=== PATIENT | female | born 1935 | race Caucasian/White ===

== ENCOUNTER 2017-01-23 13:12 | Emergency (ER) | payer OTHER ==
[2017-01-23 13:38] VITALS: BMI 31.2
--- NOTE | 2017-01-23 14:48 | PDOC ---
History of Present Illness - General History Source: Patient Exam Limitations: No Limitations - History of Present Illness Initial Comments: 01/23/17 14:57 The patient is an 82-year-old woman, accompanied by her niece, with a significant past medical history of hypertension, hypercholesterolemia and rheumatoid arthritis who presents to the emergency department for further evaluation for generalized weakness for the past 3 days. As per patient's niece , the patient has been noted to be more weak than usual, as she has a loss of appetite with noted constant non-productive cough and pleuritic chest pain. She states that the patient is constantly coughing, wanting to clear her throat, and as a result she also gets short of breath. Patient had a temperature at home , reported to be 101, but was noted to be 98.1 upon ER arrival. Patient's niece expresses concern, as the patient had one episode of emesis last night. No chills, lightheadedness, dizziness, visual changes, neck pain, lower extremity pain, diarrhea. No urinary complaints. Allergies: No Known Drug Allergies. Past Surgical History: None reported. Social History: Never smoked. No ETOH and recreational drug use. <Verenice Minaya - Last Filed: 01/23/17 15:36> - General History Source: Patient, Family, Old Records Exam Limitations: No Limitations <Jada Ashford - Last Filed: 01/23/17 16:08> - General Chief Complaint: Shortness of Breath Stated Complaint: BODYACHES, COUGH Time Seen by Provider: 01/23/17 14:48 Past History <Verenice Minaya - Last Filed: 01/23/17 15:36> - Past Medical History Anemia: No Asthma: No Cancer: No Cardiac Disorders: No CVA: No COPD: No Dementia: No Diabetes: No GI Disorders: No Disorders: Yes (INCONTINENCE) HTN: Yes Hypercholesterolemia: Yes Liver Disease: No Seizures: No Thyroid Disease: No Other medical history: RHEUMATOID ARTHRITIS, EYE - Surgical History Abdominal Surgery: No (HERNIA) Appendectomy: No Cardiac Surgery: No Cholecystectomy: No Lung Surgery: No Neurologic Surgery: No Orthopedic Surgery: No - Immunization History Td Vaccination: Yes TDAP Vaccination: Yes Immunization Up to Date: Yes - Psycho/Social/Smoking Cessation Hx Anxiety: No Suicidal Ideation: No Smoking Status: No Smoking History: Never smoked Years of Tobacco Use: 0 Have you smoked in the past 12 months: No Number of Cigarettes Smoked Daily: 0 Cigars Per Day: 0 Information on smoking cessation initiated: No Hx Alcohol Use: No Drug/Substance Use Hx: No Substance Use Type: None Hx Substance Use Treatment: No <Jada Ashford - Last Filed: 01/23/17 16:08> - Past Medical History Allergies/Adverse Reactions: Allergies Allergy/AdvReac Type Severity Reaction Status Date / Time No Known Drug Allergies Allergy Verified 01/23/17 13:39 Home Medications: Ambulatory Orders Gabapentin [Neurontin] 100 mg PO BID 02/20/13 Metoprolol Tartrate [Lopressor -] 25 mg PO BID 02/20/13 Naproxen Sodium [Naprelan] 500 mg PO BID PRN 02/20/13 Simvastatin [Zocor -] 20 mg PO HS 02/20/13 Methotrexate [Mexate -] 7 tab PO MO 08/05/15 Pantoprazole Sodium [Protonix -] 40 mg PO HS #30 tablet.ec 08/06/15 Folic Acid 1 mg PO DAILY 01/23/17 Levofloxacin [Levaquin] 500 mg PO DAILY #7 tablet 01/23/17 Ranitidine [Zantac -] 150 mg PO HS 01/23/17 Review of Systems - Review of Systems Able to Perform ROS?: Yes Comments:: 01/23/17 14:57 GENERAL/CONSTITUTIONAL: Yes: Loss of Appetite. Generalized weakness. No fever or chills. HEAD, EYES, EARS, NOSE AND THROAT: No change in vision. No ear pain or discharge. No sore throat. CARDIOVASCULAR: Yes: Chest Pain. Shortness of breath. RESPIRATORY: No cough, wheezing, or hemoptysis. GASTROINTESTINAL: Yes: Emesis (on reported episode at night). No nausea, diarrhea or constipation. GENITOURINARY: No dysuria, frequency, or change in urination. MUSCULOSKELETAL: No joint or muscle swelling or pain. No neck or back pain. SKIN: No rash NEUROLOGIC: No headache, vertigo, loss of consciousness, or change in strength/ sensation. ENDOCRINE: No increased thirst. No abnormal weight change. HEMATOLOGIC/LYMPHATIC: No anemia, easy bleeding, or history of blood clots. ALLERGIC/IMMUNOLOGIC: No hives or skin allergy. <Verenice Minaya - Last Filed: 01/23/17 15:36> *Physical Exam - Vital Signs Last Vital Signs Temp Pulse Resp BP Pulse Ox 98.1 F 73 18 151/66 96 01/23/17 13:35 01/23/17 13:35 01/23/17 13:35 01/23/17 13:35 01/23/17 13:35 - Physical Exam Comments: 01/23/17 14:57 GENERAL: Awake, alert, and fully oriented, in no acute distress HEAD: No signs of trauma EYES: PERRLA, EOMI, sclera anicteric, conjunctiva clear ENT: Auricles normal inspection, hearing grossly normal, nares patent, oropharynx clear without exudates. Moist mucosa NECK: Normal ROM, supple, no lymphadenopathy, JVD, or masses LUNGS: Breath sounds equal, clear to auscultation bilaterally. No wheezes, and no crackles HEART: Regular rate and rhythm, normal S1 and S2, no murmurs, rubs or gallops ABDOMEN: Soft, there is mild left upper quadrant tenderness to palpation, normoactive bowel sounds. No guarding, no rebound. No masses EXTREMITIES: Normal range of motion, trace bipedal edema. No clubbing or cyanosis. No cords, erythema, or tenderness NEUROLOGICAL: Cranial nerves II through XII grossly intact. Normal speech <Verenice Minaya - Last Filed: 01/23/17 15:36> - Vital Signs Last Vital Signs Temp Pulse Resp BP Pulse Ox 98.1 F 73 18 151/66 96 01/23/17 13:35 01/23/17 13:35 01/23/17 13:35 01/23/17 13:35 01/23/17 13:35 <Jada Ashford - Last Filed: 01/23/17 16:08> ED Treatment Course - LABORATORY CBC & Chemistry Diagram: 01/23/17 15:10 01/23/17 15:10 - RADIOLOGY Radiograph Interpretation: 01/23/17 15:36 EXAM: RAD/CHEST X-RAY PORTABLE Reported by Dr. Richard Curtis IMPRESSION: No acute pathology. No change in adverse nature since 09/26/2006 <Verenice Minaya - Last Filed: 01/23/17 15:36> - LABORATORY CBC & Chemistry Diagram: 01/23/17 15:10 01/23/17 15:10 <Jada Ashford - Last Filed: 01/23/17 16:08> Medical Decision Making - Medical Decision Making 82-year-old female with history of hypertension, hypercholesterolemia, rheumatoid arthritis who presents to the emergency department with her niece who states that for the past 3 days the patient has had a cough, sweating at night and generalized weakness. Differential diagnosis includes but is not limited to: Pneumonia, influenza, CHF, ACS, dehydration, electrolyte abnormality , toxic/metabolic derangement. Plan: 1. EKG 2. Chest x-ray 3. Influenza PCR 4. Labs 5. Observe and reevaluate 01/23/17 16:07 Addendum: The labs were reviewed and are noted in the EMR. Urine analysis shows positive leukoesterase. Influenza PCR is negative as is the chest x-ray. The patient is feeling improved. She has been prescribed a 500 mg of Levaquin daily for the next 7 daysfirst dose given in the ED today. I've advised the patient to follow-up with her primary care physician within the next 3 days and return to the emergency department if her symptoms persist, worsen, or new symptoms arise. <Jada Ashford - Last Filed: 01/23/17 16:08> *DC/Admit/Observation/Transfer - Attestations Scribe Attestion: 01/23/17 14:57 Documentation prepared by Verenice Minaya, acting as medical insurance claims specialist for Jada Ashford MD. <Verenice Minaya - Last Filed: 01/23/17 15:36> - Discharge Dispostion Admit: No - Attestations Physician Attestion: 01/23/17 15:22 I, Dr. Jada Ashford, attest that the scribes documentation that appears above has been prepared under my direction and personally reviewed by me in its entirety. I confirmed that the note above accurately reflects all work, treatment, procedures, and medical decision-making performed by me. <Jada Ashford - Last Filed: 01/23/17 16:08> Diagnosis at time of Disposition: Weakness generalized, UTI (urinary tract infection) - Discharge Dispostion Disposition: HOME Condition at time of disposition: Stable - Prescriptions Prescriptions: Levofloxacin [Levaquin] 500 mg PO DAILY #7 tablet - Referrals Referrals: Horace Pride MD [Primary Care Provider] - - Patient Instructions Printed Discharge Instructions: DI for Urinary Tract Infection (UTI) Additional Instructions: You have a urinary tract infection. You have been prescribed Levaquin 500 mg take 1 tablet daily for the next 7 days. You have received her first dose in the emergency department today. Please follow-up with your primary care physician within the next 3 days and return to the emergency department if your symptoms persist, worsen, or new symptoms arise.
[2017-01-23 15:32] LABS: EOSINOPHIL 4.7 % (0-4.5); MCH 29.2 pg (25.7-33.7); MCHC 32.2 g/dl (32.0-36.0); MEAN CELL VOLUME 90.7 fl (80-96); MEAN PLT VOLUME 7.5 fl (7.5-11.1); NEUTROPHILS 60.7 % (42.8-82.8); PLATELET COUNT 256 K/MM3 (134-434); RDW 17.4 % (11.6-15.6); WHITE BLOOD COUNT 6.7 K/mm3 (4.0-10.0)
[2017-01-23 15:39] LABS: URINE APPEARANCE CLOUDY; URINE BILIRUBIN NEGATIVE (NEGATIVE); URINE COLOR YELLOW; URINE GLUCOSE (UA) NEGATIVE (NEGATIVE); URINE KETONE NEGATIVE (NEGATIVE); URINE NITRITE NEGATIVE (NEGATIVE); URINE UROBILINOGEN NEGATIVE E.U./dl (0.2-1.0)
[2017-01-23 15:43] LABS: URINE BLOOD 1+ (NEGATIVE); URINE LEUK ESTERASE 3+ (NEGATIVE); URINE PROTEIN 1+ (NEGATIVE)
[2017-01-23 15:46] LABS: GRANULAR CASTS 3 /lpf; URINE BACTERIA RARE /hpf (NONE SEEN); URINE MUCUS FEW; URINE RBC 24 /hpf (0-3); URINE WBC 281 /hpf (3-5)
[2017-01-23 15:58] LABS: ALBUMIN 3.3 g/dl (3.4-5.0); ANION GAP 9 (8-16); BILIRUBIN,TOTAL 0.6 mg/dL (0.2-1.0); CALCIUM 9.2 mg/dL (8.5-10.1); CO2 26 mmol/L (21-32); CREATININE 0.9 mg/dL (0.55-1.02); GLUCOSE,RANDOM 102 mg/dL (74-106); SGOT/AST 23 U/L (15-37); SGPT/ALT 18 U/L (12-78); TOT PROT 7.2 g/dl (6.4-8.2)
[2017-01-23 16:01] LABS: ALK PHOS 86 U/L (45-117); TROPONIN I < 0.02 ng/ml (0.00-0.05)
[2017-01-23] MEDS ORDERED: LEVOFLOXACIN 500 MG TABLET (FP) PO SCH (16:15)
[2017-01-23] MEDS ORDERED: LEVOFLOXACIN 500 MG TABLET (FP) ONE (16:17)
[2017-01-23 16:21] VITALS: TEMP 98.7
[2017-01-23 16:38] VITALS: BP 159/67; PULSE 70
--- NOTE | 2017-01-25 17:16 | EKG ---
Test Reason : Blood Pressure : / mmHG Vent. Rate : 069 BPM Atrial Rate : 069 BPM P-R Int : 166 ms QRS Dur : 126 ms QT Int : 396 ms P-R-T Axes : 049 021 019 degrees QTc Int : 424 ms NORMAL SINUS RHYTHM RIGHT BUNDLE BRANCH BLOCK ABNORMAL ECG WHEN COMPARED WITH ECG OF 05-SEP-2013 13:17, NO SIGNIFICANT CHANGE WAS FOUND Confirmed by MATT PEREZ MD ([id number]) on 01/25/2017 5:16:29 PM Referred By: Confirmed By:MATT PEREZ MD
== END 2017-01-23 16:38 | disposition home or self-care (01) ==
LOC: JER 13:12
DX: N39.0 Urinary tract infection, site not specified (principal); R53.1 Weakness; I10 Essential (primary) hypertension; E78.00 Pure hypercholesterolemia, unspecified; M06.9 Rheumatoid arthritis, unspecified
CPT/HCPCS: 36415; 71010-TC; 80053; 81003; 81015; 82550; 83880; 84484; 85025; 87086; 87804; 93005; 93010; 99284-25